=== PATIENT | male | born 1995 | race Caucasian/White ===

== ENCOUNTER 2023-11-09 17:23 | Emergency (ER) | payer OTHER ==
[~2023-11-09] VITALS: Ht 172.7 cm; Wt 76.2 kg
[2023-11-09 19:43] VITALS: BP 125/78; PULSE 85; RESP 16; TEMP 97.9; O2SAT 99
== END 2023-11-09 19:45 | disposition home or self-care (01) ==
LOC: ER 17:24
DX: S81.812A Laceration without foreign body, left lower leg, initial encounter (principal); Z88.1 Allergy status to other antibiotic agents; W45.8XXA Other foreign body or object entering through skin, initial encounter; Y93.89 Activity, other specified; Y92.89 Other specified places as the place of occurrence of the external cause; Y99.8 Other external cause status
CPT/HCPCS: 12001; 99282; J7030; A6258; A6449; A6455